=== PATIENT | female | born 1960 | race Caucasian/White ===

== ENCOUNTER → 2020-01-18 | Outpatient (CLI) | payer BC ==
[~2020-01-18] MED LIST: ASPI81CH PO; ATOR40TA PO; CLOP75 PO; EFFIENT10 MG; Metoprolol Succ25 MG PO; NITR.6SL SL
== END | disposition home or self-care (01) ==
LOC: LAB 19:27 → LAB SHORT 19:27
DX: R30.0 Dysuria (principal); M54.9 Dorsalgia, unspecified
CPT/HCPCS: 87077; 87086; 87186

== ENCOUNTER → 2020-01-21 | Outpatient (CLI) | payer BC | END | disposition home or self-care (01) | LOC: LAB SHORT 10:15 → LAB 10:15 | DX: M54.9 Dorsalgia, unspecified (principal); R30.0 Dysuria | CPT/HCPCS: 87086 ==

== ENCOUNTER → 2022-11-03 | Outpatient (CLI) | payer BC | END | disposition home or self-care (01) | LOC: LAB SHORT 07:59 → LAB 07:59 | DX: R30.0 Dysuria (principal) | CPT/HCPCS: 87086; 87147 ==